=== PATIENT | female | born 1950 | race Caucasian/White ===

== ENCOUNTER 2016-06-07 11:46 | Day surgery (SDC) | payer OTHER ==
[2016-06-02 16:25] VITALS: BMI 30.5
[~2016-06-07 11:46] MED LIST: DEXAMETHASONE SOD PHOSPHATE 10 MG/ML 1 ML VIAL IV ONE; HYDROmorphone 1 MG/ML 1 ML SYRINGE IVP PRN; LACTATED RINGERS 1,000 ML IV SCH; LIDOCAINE 1% 20 ML VIAL (10MG/ML) FOR IV START INTRADERMA PRN; MIDAZOLAM 2 MG/2 ML VIAL IV PRN; ONDANSETRON 4 MG/2 ML VIAL IVP ONE; Pre Op ABX Message 1 EACH MISC MISCELLANE ONE; SCOPOLAMINE 1.5MG/72HR PATCH TRANSDERM ONE
[2016-06-07 12:16] VITALS: RESP 16; TEMP 98.3
[2016-06-07] MEDS ORDERED: LIDOCAINE 1% 20 ML VIAL (10MG/ML) FOR IV START INTRADERMA ONE (12:18)
[2016-06-07] MEDS ORDERED: KETAMINE 10 MG/ML 20 ML VIAL ONE (13:33)
[2016-06-07] MEDS ORDERED: MIDAZOLAM 2 MG/2 ML VIAL ONE (13:33)
[2016-06-07] MEDS ORDERED: CLINDAMYCIN 150 MG/ML 4 ML VIAL ONE (13:33)
[2016-06-07] MEDS ORDERED: PROPOFOL 10 MG/ML 20 ML VIAL IV ONE (13:33)
[2016-06-07] MEDS ORDERED: fentaNYL (PF) 50 MCG/ML 2 ML AMP ONE (13:33)
[2016-06-07] MEDS ORDERED: LIDOCAINE 1% INJ 10MG/ML (20 ML MDV) ONE (13:33)
[2016-06-07] MEDS ORDERED: BUPIVACAINE (PF) 0.5% 30 ML VIAL SQ ONE (13:45)
[2016-06-07] MEDS ORDERED: LIDOCAINE 2% (PF) 20 MG/ML 10ML SQ ONE (13:45)
[2016-06-07] MEDS ORDERED: SODIUM CHLORIDE 0.9% 100 ML with CLINDAMYCIN 600 MG IV ONE ×2 (13:51)
--- NOTE | 2016-06-07 15:01 | FL ---
FLUOROSCOPY 9 seconds of fluoroscopy time were utilized during fusion of the right. 2 images document the procedu re.
--- NOTE | 2016-06-07 15:03 | XR ---
EXAMINATION TYPE: XR finger RT DATE OF EXAM: 06/07/2016 2:39 PM COMPARISON: NONE HISTORY: Postop TECHNIQUE: One view submitted FINDINGS: Postsurgical change involving the second digit which appears in near-anatomic alignment. IMPRESSION: Postoperative change
[2016-06-07 15:28] VITALS: BP 125/68; PULSE 80
--- NOTE | 2016-06-08 07:47 | OP ---
DATE OF SERVICE: 06/07/2016 SURGEON: TAMI BASS DO [employer]: PREOPERATIVE DIAGNOSIS: Osteoarthritis PIP joint right index finger. POSTOPERATIVE DIAGNOSIS: Osteoarthritis PIP joint right index finger. OPERATION: Fusion PIP joint right index finger with plate and screw internal fixation. ANESTHESIA: ESTIMATED BLOOD LOSS: SPECIMENS REMOVED: COMPLICATIONS: OPERATIVE FINDINGS: DESCRIPTION OF PROCEDURE: A 65-year-old woman was taken to the operative suite, given IV sedation, and the index finger was anesthetized in a digital block manner using a combination Xylocaine and Marcaine, both without epinephrine. Her hand was then prepped and draped in the usual manner, hand was elevated, exsanguinated and cuff was inflated to 250 mmHg. A longitudinal C-shaped incision was made over the PIP joint. Skin flaps were dissected and electrocautery was used for hemostasis. The extensor mechanism and periosteum were incised longitudinally exposing the PIP joint. A rongeur was used to decorticate the joint surfaces and remove osteophytic spurs as best as possible. The joint was then lined up and a dorsal plate was applied with 2.0 mm cortical screws. The procedure was done under C-arm fluoroscopy and position of plate and screws was deemed satisfactory. Clinically, the finger was in good position with a slight flexion with the tip of the finger articulated nice with tip of the thumb. Wound was thoroughly irrigated. Extensor mechanism and periosteum were closed with a 4-0 PDS suture. Tourniquet was then released. Hemostasis was satisfactory. The skin was closed with running 5-0 nylon suture. A soft, bulky dressing was applied. Patient was taken to the recovery room in satisfactory condition.
== END 2016-06-07 15:47 | disposition home or self-care (01) ==
LOC: OR 11:46
PROVIDERS: ATTEND Orthopaedic Surgery Hand Surgery
DX: M19.041 Primary osteoarthritis, right hand (principal); M25.741 Osteophyte, right hand; I10 Essential (primary) hypertension; E78.5 Hyperlipidemia, unspecified; G43.909 Migraine, unspecified, not intractable, without status migrainosus; E07.9 Disorder of thyroid, unspecified; K21.9 Gastro-esophageal reflux disease without esophagitis; Z79.82 Long term (current) use of aspirin; Z79.891 Long term (current) use of opiate analgesic; Z79.899 Other long term (current) drug therapy; Z88.1 Allergy status to other antibiotic agents; Z88.2 Allergy status to sulfonamides; Z87.891 Personal history of nicotine dependence
CPT/HCPCS: 73140; 26860; C1713; J2250; J1100; J2001 ×2; J2405; J3010; J2704